=== PATIENT | male | born 1990 | race Caucasian/White ===

== ENCOUNTER 2022-11-21 16:51 | Inpatient (IN) | payer MEDICAID ==
[2022-11-21] MEDS ORDERED: MAG HYDROX/AL HYDROX/SIMETH 30 ML CUP PO PRN (21:51)
[2022-11-21] MEDS ORDERED: ACETAMINOPHEN TAB 325 MG TAB PO PRN (21:51)
[2022-11-21] MEDS ORDERED: MAGNESIUM HYDROXIDE 2,400 MG/30 ML CUP PO PRN (21:51)
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
[2022-11-22] MEDS ORDERED: LORazepam 2 MG/ML INJ IM PRN (09:12)
[2022-11-22] MEDS ORDERED: diphenhydrAMINE 50 MG CAP PO PRN (09:13)
[2022-11-22] MEDS ORDERED: diphenhydrAMINE 50 MG/ML 1 ML VIAL IM PRN (09:13)
[2022-11-22] MEDS ORDERED: chlorproMAZINE 25 MG/ML 2 ML AMP IM PRN (09:13)
[2022-11-22] MEDS: NICOTINE 21MG/24HR PATCH TRANSDERM SCH ×3 (09:16→20:35)
[2022-11-22] MEDS ORDERED: ARIPiprazole 5 MG TAB PO STA (09:45)
[2022-11-22 11:11] LABS: Chol/HDL Ratio 2.52 Ratio; LDL Cholesterol,Calculated 53.6 mg/dL (0.0-131.0); VLDL Calculation 15.68 mg/dL (5.00-40.00)
[2022-11-22] MEDS: LORazepam 1 MG TAB PO PRN (12:35)
[2022-11-22] MEDS: chlorproMAZINE 25 MG TAB PO PRN (12:35)
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
[2022-11-22 15:38] VITALS: BMI 17.9
[2022-11-22] MEDS: VALPROIC ACID ORAL SOLN 250 MG/5 ML CUP PO SCH (20:07)
[2022-11-23] MEDS: VALPROIC ACID ORAL SOLN 250 MG/5 ML CUP PO SCH ×2 (08:38→21:38)
[2022-11-23] MEDS: NICOTINE 21MG/24HR PATCH TRANSDERM SCH ×2 (08:38→22:42)
[2022-11-23] MEDS ORDERED: ARIPiprazole 10 MG TAB PO SCH (09:00)
--- NOTE | 2022-11-23 13:06 | P.PN ---
Progress Note - Text Progress Note Date: 11/23/22 Interval History: Patient was seen resting in bed and was directable and agreeable to speak with property underwriter in the office. Currently, the patient is not reporting any suicidal or homicidal ideation, intention, and/or plan. He did require the administration of Thorazine last night due to his disorganization and behaviors. He reports that he was able to sleep well. He is currently not reporting any auditory or visual hallucinations. He is currently denying any overt paranoia or other delusions. 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 He also reports that he only has one and not the 2 wives he stated yesterday. He does admit that he "gets my ego ahead of myself." He has been adherent with his medication is not reporting any significant side effects. Mental Status Exam: General Appearance: Patient appears to be stated age is alert, directable, and cooperative. Thin and disheveled. Behavior: Patient is calmly seated without any agitated behavior. Normal psychomotor activity today. Speech: Patient's speech is fluent and nonpressured. Mood/Affect: Mood is improving mildly, affect is congruent and constricted. Suicidality/Homicidality: Patient reports no suicidal or homicidal ideation, intention, and/or plan. Perceptions: Patient denies any visual hallucinations and denies any auditory hallucinations Though content/process: There is no evidence of any delusional thought content a nd thought process is linear and goal-directed. Memory and concentration: AOX3, grossly intact for the purposes of this session Judgment and insight: Improving mildly Vital Signs Temp 97.8 F 11/21/22 22:53 Pulse 77 11/21/22 23:14 Resp 17 11/21/22 23:14 BP 125/73 11/21/22 22:53 Pulse Ox 99 11/21/22 22:53 FiO2 Intake & Output 11/22/22 11/23/22 11/23/22 18:59 06:59 18:59 Weight 58.513 kg Laboratory Results Estimated Ave Glu mg/dL 100 mg/dL 11/22/22 07:30 Hemoglobin A1c 5.1 % (<=6.0) 11/22/22 07:30 Triglycerides 78.40 mg/dL (0.00-149.00) 11/22/22 07:30 Cholesterol 115.00 mg/dL (0.00-200.00) 11/22/22 07:30 LDL Cholesterol, Calc 53.6 mg/dL (0.0-131.0) 11/22/22 07:30 VLDL Cholesterol, Calc 15.68 mg/dL (5.00-40.00) 11/22/22 07:30 HDL Cholesterol 45.70 mg/dL (40.00-60.00) 11/22/22 07:30 Cholesterol/HDL Ratio 2.52 Ratio 11/22/22 07:30 Assessment Schizoaffective disorder, bipolar type Alcohol use disorder, binge pattern Cannabis use disorder Nicotine dependence Plan: -Patient continues to meet criteria for inpatient psychiatric admission for symptom stabilization and safety. The patient has been petitioned and certified. -Medications: Increase Abilify to 10 mg today and 50 mg tomorrow with plans to transition to Abilify maintena prior to discharge Increase Depakote oral solution to 750 mg by mouth twice a day for mood stabilization -When necessary Ativan and Thorazine for agitation/aggression. -NRT - nicotine patch -SW on board for discharge planning. Encouraged the patient to participate in milieu.
[2022-11-23] MEDS: chlorproMAZINE 25 MG TAB PO PRN (16:46)
[2022-11-24] MEDS: VALPROIC ACID ORAL SOLN 250 MG/5 ML CUP PO SCH ×2 (08:33→20:17)
[2022-11-24] MEDS: NICOTINE 21MG/24HR PATCH TRANSDERM SCH (08:33)
[2022-11-24] MEDS: LORazepam 1 MG TAB PO PRN (08:33)
[2022-11-24] MEDS ORDERED: ARIPiprazole 15 MG TAB PO SCH (09:00)
--- NOTE | 2022-11-24 13:59 | P.PN ---
Subjective Progress Note Date: 11/24/22 Principal diagnosis: progress note He was seen today in person for review of his Rx and progress. At the team meeting, his history and progress was discussed. Without further collateral history, his "history" was highly interwoven with his delusion : mixed paranoid and grandiose. 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 His marital history could not be corroborated. He durther reiterated on his perception of what her term drastic action by the police at the parking lot. He was totally unaware that he was in florid psychotic state; While it is likely that he may have been under the influence of potent substances of absue inclduin gpsychedlic drugs. he was unable to provide a coherent history. He was highly litigious over the involuntary commitment and was not aware he might rpesent a risk of himself and to others if his psychosis was not treated. MSE; he was intermittently agitated and has moderate pressures of speech, mood: highly irritaBLE and excited at times vpoer his [email or web address] schemes of work . He did nto elaborate on his community around [place] . Full range of affect; Grandiose and paranoid delusions and ideas of refernece. No suicidal or homicidal ideaitons. No hallucinations. Cog; He was totally lucid with totally absent in his insight. Diagnosis; Schizoaffective disorder. Bipolar subtype. acute psychosis. r/o drug substance induced psychossi management : He continue to require inpatient hospitalzatiion, involunatry a dmission is fully awarranted. Monitor his response to Rx. Abilify has been increased to 20 mg ; he woud lbe titrated to Abilify Maintenna to 300 mg im q 4wk by early enxt week collaleral information would be required to clarify his delusions. . Consult [facility] for follow up explore family dynsmics Objective - Vital Signs Vital signs: Vital Signs Temp 97.8 F 11/24/22 06:27 Pulse 109 H 11/24/22 06:27 Resp 16 11/24/22 06:27 BP 124/82 11/24/22 06:27 Pulse Ox 99 11/21/22 22:53 FiO2
[2022-11-25] MEDS: VALPROIC ACID ORAL SOLN 250 MG/5 ML CUP PO SCH ×2 (08:09→20:15)
[2022-11-25] MEDS: NICOTINE 21MG/24HR PATCH TRANSDERM SCH (08:09)
[2022-11-25] MEDS: NICOTINE GUM (POLACRILEX) 2 MG GUM BUCCAL PRN ×3 (09:45→20:16)
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
[2022-11-26] MEDS: VALPROIC ACID ORAL SOLN 250 MG/5 ML CUP PO SCH ×2 (07:44→20:04)
[2022-11-26] MEDS: NICOTINE 21MG/24HR PATCH TRANSDERM SCH (07:45)
[2022-11-26] MEDS: NICOTINE GUM (POLACRILEX) 2 MG GUM BUCCAL PRN ×3 (12:37→22:50)
--- NOTE | 2022-11-26 12:44 | P.PN ---
Subjective Progress Note Date: 11/26/22 Principal diagnosis: diagnosis Schisaffective disroder, bipolar disorder unspecified substnace related psychosis: cannabis, alcohol use disorder, mild to moeerate. Subjective data: Patient continues to report that he was brought here against his will He says that he is not suicidal or homicidal and that is being repeated documented about He says that he was walking down the street with the police picked him for no known reason He says that he currently lives with his sister and 4 kids He says that he has been taking his medications regularly He earlier denies any history of any mental illness but that later said that he was taking medications on a regular basis and that listed several meds including Abilify He denies that he is experiencing any auditory or visual hallucinations Mental status examination: Mental Status Exam: General Appearance: Patient appears stated age is alert, directable. Patient appears to have improving and unshaven hygiene and grooming hospital gown with fair eye contact. Behavior: Patient was seen while walking down the corridor directable and more appropriate. Speech: Patient's speech is softer and tone. rambles at times, improving mildly Mood/Affect: Patient reports their mood is "ok", affect is congruent and brighter today. Suicidality/Homicidality: Patient denies having any suicidal or homicidal ideation intent or plan. Perceptions: Patient denies any visual hallucinations and denies any auditory hallucinations Though content/process: Patient is projective, rationalizing intellectualizing Remains paranoid and suspicious Rambles at times. focused on discharge, Memory and concentration: AOX3, grossly intact for the purposes of this session Judgment and insight: Chronically poor/limited, he continues to fulfil the criteria of inpatient admisison. involuntary admisison . 2 monitor his adhernece towards Rx side effects. depot option gladys lbe seriously considered. 3. explore family dyanamics. 4 encoruage pt to participate in milieu groups activities. continue on Abilify and Ronnell najera MD 11/26/22 Objective - Vital Signs Vital signs: Vital Signs Temp 98.1 F 11/26/22 06:16 Pulse 108 H 11/26/22 06:16 Resp 17 11/26/22 06:16 BP 126/75 11/26/22 06:16 Pulse Ox 99 11/26/22 06:16 FiO2 Intake & Output 11/25/22 11/26/22 11/26/22 18:59 06:59 18:59 Weight 58.513 kg
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
[2022-11-27] MEDS: VALPROIC ACID ORAL SOLN 250 MG/5 ML CUP PO SCH ×2 (08:43→20:13)
[2022-11-27] MEDS: NICOTINE 21MG/24HR PATCH TRANSDERM SCH (08:44)
[2022-11-27] MEDS: NICOTINE GUM (POLACRILEX) 2 MG GUM BUCCAL PRN ×3 (10:05→18:25)
--- NOTE | 2022-11-27 10:13 | P.PN ---
Subjective Progress Note Date: 11/27/22 Principal diagnosis: diagnosis Schisaffective disroder, bipolar disorder unspecified substnace related psychosis: cannabis, alcohol use disorder, mild to moeerate. Subjective data: The patient was seen for a follow-up Patient was pleasant in interaction and continues to praise this physician and comes across as very manipulative focused on wanting to be discharged He states that he is doing worry well and has no issues or concerns He denies that he has any thoughts of wanting to hurt himself or others He states that he is taking the medications regularly and feels that he is stable He denies any racing thoughts He says that he slept well and is eating well Mental status examination: Mental Status Exam: General Appearance: Patient appears stated age is alert, directable. Patient appears to have improving and unshaven hygiene and grooming hospital gown with fair eye contact. Behavior: Patient was seen while walking down the corridor directable and more appropriate. Speech: Patient's speech is softer and tone. rambles at times, improving mildly Mood/Affect: Patient reports their mood is "ok", affect is congruent and brighter today. Suicidality/Homicidality: Patient denies having any suicidal or homicidal ideation intent or plan. Perceptions: Patient denies any visual hallucinations and denies any auditory hallucinations Though content/process: Patient is projective, rationalizing intellectualizing Remains paranoid and suspicious Rambles at times. focused on discharge, Memory and concentration: AOX3, grossly intact for the purposes of this session Judgment and insight: Chronically poor/limited, he continues to fulfil the criteria of inpatient admisison. involuntary admisison . 2 monitor his adhernece towards Rx side effects. depot option gladys lbe seriously considered. 3. explore family dyanamics. 4 encoruage pt to participate in milieu groups activities. continue on Abilify and Depakote liyah najera MD 11/27/22 Objective - Vital Signs Vital signs: Vital Signs Temp 98.3 F 11/27/22 06:57 Pulse 109 H 11/27/22 06:57 Resp 16 11/27/22 06:57 BP 117/61 11/27/22 06:57 Pulse Ox 99 11/26/22 06:16 FiO2 Intake & Output 11/26/22 11/27/22 11/27/22 18:59 06:59 18:59 Weight 69.8 kg
[2022-11-27] MEDS: LORazepam 1 MG TAB PO PRN (21:36)
[2022-11-28] MEDS: NICOTINE 21MG/24HR PATCH TRANSDERM SCH (08:17)
[2022-11-28] MEDS: VALPROIC ACID ORAL SOLN 250 MG/5 ML CUP PO SCH ×2 (09:56→20:36)
[2022-11-28] MEDS ORDERED: ARIPiprazole IM 400 MG VIAL (NO COST) PHARMACY STOCK IM ONE (10:05)
[2022-11-28] MEDS: NICOTINE GUM (POLACRILEX) 2 MG GUM BUCCAL PRN ×3 (10:30→18:35)
[2022-11-28 13:00] LABS: Basophils % (A) 0 %; Eosinophils # (A) 0.4 k/uL (0-0.7); Eosinophils % (A) 5 %; HCT 48.7 % (39.0-53.0); HGB 16.3 gm/dL (13.0-17.5); Lymphocytes # (A) 2.6 k/uL (1.0-4.8); Lymphocytes % (A) 27 %; MCH 31.1 pg (25.0-35.0); MCHC 33.5 g/dL (31.0-37.0); MCV 92.8 fL (80.0-100.0); Mean Platelet Volume 8.4; Monocytes # (A) 0.5 k/uL (0-1.0); Monocytes % (A) 5 %; Neutrophils # (A) 5.9 k/uL (1.3-7.7); Neutrophils % (A) 61 %; Platelet Count 251 k/uL (150-450); RBC 5.25 m/uL (4.30-5.90); RDW 12.5 % (11.5-15.5); WBC 9.7 k/uL (3.8-10.6)
[2022-11-28 13:28] LABS: ALT 29 U/L (4-49); AST 22 U/L (17-59); African American GFR (CKD) >90 (>60 ml/min/1.73 sqM); Alkaline Phosphatase 50 U/L (38-126); Anion Gap 6 mmol/L; Blood Urea Nitrogen 15 mg/dL (9-20); Calcium 9.6 mg/dL (8.4-10.2); Carbon Dioxide 30 mmol/L (22-30); Chloride 100 mmol/L (98-107); Glucose 84 mg/dL (74-99); Non-African American GFR(CKD) >90 (>60 ml/min/1.73 sqM); Potassium 4.5 mmol/L (3.5-5.1); Sodium 136 mmol/L (137-145); Total Bilirubin 0.4 mg/dL (0.2-1.3); Total Protein 6.9 g/dL (6.3-8.2)
[2022-11-28 13:33] LABS: Valproic Acid (Depakene) 103.9 ug/mL
--- NOTE | 2022-11-28 13:35 | P.PN ---
Progress Note - Text Progress Note Date: 11/28/22 Interval History: Patient was seen wandering the hallways and was directable and agreeable to speak with repairer typewriter in the office. Currently, the patient is not reporting any suicidal or homicidal ideation, intention, and/or plan. He is not reporting any auditory or visual hallucinations. He is denying any paranoia or other delusions. The patient has been adherent with his medication and is not reporting any significant side effects. He reports that he is agreeable to ta pao his medications and transitioning to the long-acting injectable Abilify maintena. He is scheduled for court this Monday however states that he plans to agree to a court order. He reports no issues regarding his sleep or his appetite. He denies any concerns to this provider today. Mental Status Exam: General Appearance: Patient appears to be stated age is alert, directable, and cooperative. Slightly disheveled. Thin build. Behavior: Patient is calmly seated without any agitated behavior. Speech: Patient's speech is fluent and nonpressured. Mood/Affect: Mood is improving mildly, affect is congruent and constricted. Suicidality/Homicidality: Patient denies having any suicidal or homicidal ideation intent or plan. Perceptions: Patient denies any visual hallucinations and denies any auditory hallucinations Though content/process: There is no evidence of any delusional thought content and thought process is linear and goal-directed. Memory and concentration: AOX3, grossly intact for the purposes of this session Judgment and insight: Improving mildly Vital Signs Temp 97.3 F L 11/28/22 06:56 Pulse 103 H 11/28/22 06:56 Resp 16 11/28/22 06:56 BP 122/57 11/28/22 06:56 Pulse Ox 99 11/26/22 06:16 FiO2 Intake & Output 11/27/22 11/28/22 11/28/22 18:59 06:59 18:59 Weight 69.8 kg Laboratory Results - Last 24 Hours 11/28/22 11/28/22 12:35 12:35 WBC 9.7 RBC 5.25 Hgb 16.3 Hct 48.7 MCV 92.8 MCH 31.1 MCHC 33.5 RDW 12.5 Plt Count 251 MPV 8.4 Neutrophils % 61 Lymphocytes % 27 Monocytes % 5 Eosinophils % 5 Basophils % 0 Neutrophils # 5.9 Lymphocytes # 2.6 Monocytes # 0.5 Eosinophils # 0.4 Basophils # 0.0 Sodium 136 L Potassium 4.5 Chloride 100 Carbon Dioxide 30 Anion Gap 6 BUN 15 Creatinine 0.68 Est GFR (CKD-EPI)AfAm >90 Est GFR (CKD-EPI)NonAf >90 Glucose 84 Calcium 9.6 Total Bilirubin 0.4 AST 22 ALT 29 Alkaline Phosphatase 50 Total Protein 6.9 Albumin 4.0 Valproic Acid 103.9 Assessment Schizoaffective disorder, bipolar type Alcohol use disorder, binge pattern Cannabis use disorder Nicotine dependence Plan: -Patient continues to meet criteria for inpatient psychiatric admission for symptom stabilization and safety. Patient has been petitioned and certified and is scheduled for court this Monday. -Medications: Continue oral Abilify 20 mg by mouth daily. Administer Abilify maintena 400 mg IM today for mood stabilization/psychosis Continue Depakene syrup 750 mg by mouth twice a day for mood stabilization. CMP, CBC, and Depakote level ordered. -When necessary Ativan and Thorazine for agitation/aggression. -NRT - nicotine patch and nicotine gum -SW on board for discharge planning. Encouraged the patient to participate in milieu.
[2022-11-28] MEDS: LORazepam 1 MG TAB PO PRN (20:54)
[2022-11-29] MEDS: NICOTINE 21MG/24HR PATCH TRANSDERM SCH (08:35)
[2022-11-29] MEDS: VALPROIC ACID ORAL SOLN 250 MG/5 ML CUP PO SCH ×2 (08:35→20:38)
[2022-11-29] MEDS: NICOTINE GUM (POLACRILEX) 2 MG GUM BUCCAL PRN ×4 (08:51→22:20)
--- NOTE | 2022-11-29 11:11 | P.PN ---
Progress Note - Text Progress Note Date: 11/29/22 Interval History: Patient was seen wandering the hallways and was directable and agreeable to speak with fiction writer in the office. Currently, the patient is not reporting any suicidal or homicidal ideation, intention, and/or plan. He is not reporting any auditory or visual hallucinations. He is denying any paranoia or other delusions. The patient has been adherent with his medication and is not reporting any significant side effects. The patient received Abilify maintena yesterday. He reports no issues regarding his sleep or his appetite. He denies any medical issues or concerns and reports no chest pain, shortness of breath, palpitations, akathisia, or tardive dyskinesia. The patient is agreeable to treatment and plans to stipulate to a court order. Mental Status Exam: Grossly unchanged from yesterday General Appearance: Patient appears to be stated age is alert, directable, and cooperative. Slightly disheveled. Thin build. Behavior: Patient is calmly seated without any agitated behavior. Speech: Patient's speech is fluent and nonpressured. Mood/Affect: Mood is improving mildly, affect is congruent and constricted. Suicidality/Homicidality: Patient denies having any suicidal or homicidal ideation intent or plan. Perceptions: Patient denies any visual hallucinations and denies any auditory hallucinations Though content/process: There is no evidence of any delusional thought content and thought process is linear and goal-directed. Memory and concentration: AOX3, grossly intact for the purposes of this session Judgment and insight: Improving mildly Vital Signs Temp 98.1 F 11/28/22 19:56 Pulse 106 H 11/28/22 19:56 Resp 17 11/28/22 19:56 BP 124/86 11/28/22 19:56 Pulse Ox 98 11/28/22 19:56 FiO2 Laboratory Results - Last 24 Hours 11/28/22 11/28/22 12:35 12:35 WBC 9.7 RBC 5.25 Hgb 16.3 Hct 48.7 MCV 92.8 MCH 31.1 MCHC 33.5 RDW 12.5 Plt Count 251 MPV 8.4 Neutrophils % 61 Lymphocytes % 27 Monocytes % 5 Eosinophils % 5 Basophils % 0 Neutrophils # 5.9 Lymphocytes # 2.6 Monocytes # 0.5 Eosinophils # 0.4 Basophils # 0.0 Sodium 136 L Potassium 4.5 Chloride 100 Carbon Dioxide 30 Anion Gap 6 BUN 15 Creatinine 0.68 Est GFR (CKD-EPI)AfAm >90 Est GFR (CKD-EPI)NonAf >90 Glucose 84 Calcium 9.6 Total Bilirubin 0.4 AST 22 ALT 29 Alkaline Phosphatase 50 Total Protein 6.9 Albumin 4.0 Valproic Acid 103.9 Assessment Schizoaffective disorder, bipolar type Alcohol use disorder, binge pattern Cannabis use disorder Nicotine dependence Plan: -Patient continues to meet criteria for inpatient psychiatric admission for symptom stabilization and safety. Patient has been petitioned and certified and is scheduled for court this Monday. -Medications: Continue oral Abilify 20 mg by mouth daily. Abilify maintena 400 mg IM was administered on 11/28/2022 with his next dose due 12/26/2022 for mood stabilization/psychosis Continue Depakene syrup 750 mg by mouth twice a day for mood stabilization. -When necessary Ativan and Thorazine for agitation/aggression. -NRT - nicotine patch and nicotine gum -SW on board for discharge planning. Encouraged the patient to participate in milieu.
[2022-11-30] MEDS: NICOTINE GUM (POLACRILEX) 2 MG GUM BUCCAL PRN ×2 (06:45→11:08)
[2022-11-30 06:58] VITALS: BP 129/78; PULSE 104; RESP 18; TEMP 97.8
[2022-11-30] MEDS: NICOTINE 21MG/24HR PATCH TRANSDERM SCH (08:13)
[2022-11-30] MEDS: VALPROIC ACID ORAL SOLN 250 MG/5 ML CUP PO SCH (08:13)
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
== END 2022-11-30 13:49 | disposition home or self-care (01) | DRG 750 ==
LOC: UNDOADMIN 20:48 → 3MHU 20:48 → UNDOADMIN 20:51 → 3MHU 21:00
PROVIDERS: ADMIT Psychiatry & Neurology Psychiatry; ATTEND Psychiatry & Neurology Psychiatry
DX: F25.0 Schizoaffective disorder, bipolar type (principal); F12.10 Cannabis abuse, uncomplicated; F10.10 Alcohol abuse, uncomplicated; Z28.310 Unvaccinated for COVID-19; I10 Essential (primary) hypertension; F17.210 Nicotine dependence, cigarettes, uncomplicated; Z71.6 Tobacco abuse counseling; Z79.899 Other long term (current) drug therapy; Z56.0 Unemployment, unspecified; Z71.51 Drug abuse counseling and surveillance of drug abuser; Z71.41 Alcohol abuse counseling and surveillance of alcoholic; Z88.0 Allergy status to penicillin; Z81.8 Family history of other mental and behavioral disorders
CPT/HCPCS: 80053; 80061; 80164; 83036; 85025